=== PATIENT | male | born 1980 | race Caucasian/White ===

== ENCOUNTER 2023-10-14 09:57 | Emergency (ER) | payer SELFPAY ==
[~2023-10-14] VITALS: Ht 167.6 cm; Wt 81.6 kg
[2023-10-14 10:43] VITALS: BP 132/76; PULSE 101; RESP 18; TEMP 98; O2SAT 98
[2023-10-14] MEDS ORDERED: BICT1TAB PO (12:27)
[2023-10-14 14:07] LABS: FLU A ANTIGEN negative (NEGATIVE); FLU B ANTIGEN negative (NEGATIVE)
== END 2023-10-14 12:45 | disposition home or self-care (01) ==
LOC: MED 09:57
DX: M79.10 Myalgia, unspecified site (principal); Z20.822 Contact with and (suspected) exposure to COVID-19; R19.7 Diarrhea, unspecified; Z79.899 Other long term (current) drug therapy
CPT/HCPCS: 99283